=== PATIENT | female | born 1995 | race Caucasian/White ===

== ENCOUNTER → 2022-09-17 | Outpatient (CLI) | payer OTHER ==
[2022-09-17 09:32] LABS: BASO # 0.1 10^3/uL (0.0-0.2); BASO % 0.5 % (0.0-1.0); EOS # 0.2 10^3/uL (0.0-0.5); EOS % 1.9 % (0.0-3.0); HEMATOCRIT 42.2 % (36.0-47.0); HEMOGLOBIN 13.9 g/dl (12.0-15.5); LYMPH # 2.6 10^3/uL (1.5-5.0); LYMPH % 27.7 % (24.0-44.0); MEAN CORPUSCULAR HEMOGLOBIN 29.9 pg (27.0-33.0); MEAN CORPUSCULAR HGB CONC 32.9 g/dl (32.0-36.5); MEAN CORPUSCULAR VOLUME 90.8 fl (80.0-96.0); MONO # 0.6 10^3/uL (0.0-0.8); MONO % 6.6 % (2.0-8.0); NEUTROPHILS # 5.8 10^3/uL (1.5-8.5); NEUTROPHILS % 62.2 % (36.0-66.0); PLATELET COUNT, AUTOMATED 319 10^3/uL (150-450); RED BLOOD COUNT 4.65 10^6/uL (4.00-5.40); WHITE BLOOD COUNT 9.4 10^3/uL (4.0-10.0)
[2022-09-17 09:57] LABS: CREATININE, URINE 147.3 MG/DL; MAU/CREAT RATIO 2.7 MCG/MG (0.0-30.0)
[2022-09-17 09:58] LABS: ALBUMIN 3.5 G/DL (3.2-5.2); ALKALINE PHOSPHATASE 80 U/L (46-116); ALT/SGPT 29 U/L (7.0-40); AST/SGOT 22 U/L (<34); BILIRUBIN,TOTAL 0.3 MG/DL (0.3-1.2); BLOOD UREA NITROGEN 8 MG/DL (9-23); CALCIUM LEVEL 9.1 MG/DL (8.5-10.1); CARBON DIOXIDE LEVEL 27 MMOL/L (20-31); CHLORIDE LEVEL 104 MMOL/L (98-107); CREATININE FOR GFR 0.82 MG/DL (0.55-1.30); GLOMERULAR FILTRATION RATE > 60.0 (>60); GLUCOSE, FASTING 96 MG/DL (60-100); POTASSIUM SERUM 4.2 MMOL/L (3.5-5.1); SODIUM LEVEL 139 MMOL/L (136-145); TOTAL PROTEIN 6.5 G/DL (5.7-8.2)
[2022-09-17 10:00] LABS: FREE T4 0.94 NG/DL (0.89-1.76); HCG, SERUM QUALITATIVE NEGATIVE (NEGATIVE)
[2022-09-17 10:01] LABS: THYROID STIMULATING HORMONE 1.941 uIU/ML (0.55-4.78)
== END ==
LOC: M LAB 09:06
PROVIDERS: ATTEND Nurse Practitioner Family
DX: R11.10 Vomiting, unspecified (principal); R10.84 Generalized abdominal pain

== ENCOUNTER 2022-10-30 07:40 | Emergency (ER) | payer OTHER ==
[~2022-10-30] VITALS: Ht 162.6 cm; Wt 81.1 kg
[2022-10-30] MEDS ORDERED: DULO1CAP5 (07:50)
[2022-10-30] MEDS ORDERED: OLAN1TAB16 (07:50)
[2022-10-30] MEDS ORDERED: PROP20TA72 (07:50)
[2022-10-30] MEDS ORDERED: ALPR0.25 (07:50)
[2022-10-30] MEDS ORDERED: FAMO1TAB11 (07:50)
[2022-10-30] MEDS ORDERED: ONDANSETRON 4MG 2ML VIAL IV ONE (08:10)
[2022-10-30] MEDS ORDERED: PANTOPRAZOLE 40MG VIAL IV ONE (08:10)
[2022-10-30] MEDS ORDERED: NS 1,000 ML IV ONE (08:10)
[2022-10-30 08:54] LABS: BASO # 0.1 10^3/uL (0.0-0.2); BASO % 0.6 % (0.0-1.0); EOS % 0.2 % (0.0-3.0); HEMATOCRIT 45.6 % (36.0-47.0); HEMOGLOBIN 15.3 g/dl (12.0-15.5); LYMPH # 1.8 10^3/uL (1.5-5.0); LYMPH % 20.3 % (24.0-44.0); MEAN CORPUSCULAR HGB CONC 33.6 g/dl (32.0-36.5); MEAN CORPUSCULAR VOLUME 89.4 fl (80.0-96.0); MONO # 0.6 10^3/uL (0.0-0.8); MONO % 6.7 % (2.0-8.0); NEUTROPHILS # 6.3 10^3/uL (1.5-8.5); NEUTROPHILS % 71.5 % (36.0-66.0); PLATELET COUNT, AUTOMATED 430 10^3/uL (150-450); WHITE BLOOD COUNT 8.8 10^3/uL (4.0-10.0)
[2022-10-30 09:19] LABS: ALBUMIN 4.1 G/DL (3.2-5.2); ALKALINE PHOSPHATASE 85 U/L (46-116); ALT/SGPT 66 U/L (7.0-40); AST/SGOT 61 U/L (<34); BILIRUBIN,DIRECT 0.4 MG/DL (<0.4); BILIRUBIN,TOTAL 1.3 MG/DL (0.3-1.2); BLOOD UREA NITROGEN 9 MG/DL (9-23); CALCIUM LEVEL 9.3 MG/DL (8.5-10.1); CARBON DIOXIDE LEVEL 22 MMOL/L (20-31); CHLORIDE LEVEL 99 MMOL/L (98-107); CREATININE FOR GFR 0.75 MG/DL (0.55-1.30); GLOMERULAR FILTRATION RATE > 60.0 (>60); GLUCOSE, FASTING 106 MG/DL (60-100); POTASSIUM SERUM 3.5 MMOL/L (3.5-5.1); SODIUM LEVEL 135 MMOL/L (136-145); TOTAL PROTEIN 7.8 G/DL (5.7-8.2)
[2022-10-30] MEDS ORDERED: UNIS25TA3 PO (11:37)
[2022-10-30] MEDS ORDERED: ONDA4TAB6 PO (11:37)
[2022-10-30] MEDS ORDERED: PYRI25TA2 PO (11:37)
[2022-10-30 11:42] VITALS: BP 145/74
== END 2022-10-30 11:50 | disposition home or self-care (01) ==
LOC: M ED 07:40
DX: Z33.1 Pregnant state, incidental (principal); Z3A.00 Weeks of gestation of pregnancy not specified; K76.0 Fatty (change of) liver, not elsewhere classified; F12.10 Cannabis abuse, uncomplicated
CPT/HCPCS: 76705; 80048; 80076; 84702; 85025; 96374; 96375; 99284; C9113; J2405

== ENCOUNTER 2022-11-22 18:02 | Emergency (ER) | payer OTHER ==
[~2022-11-22] VITALS: Ht 160 cm; Wt 81.3 kg
[~2022-11-22 18:02] MED LIST: ALPR0.25; DULO1CAP5; FAMO1TAB11; OLAN1TAB16; ONDA4TAB6 PO; PROP20TA72; PYRI25TA2 PO; UNIS25TA3 PO
[2022-11-22] MEDS ORDERED: ACETAMINOPHEN 1000MG 100ML IV BAG IV ONE (19:20)
[2022-11-22] MEDS ORDERED: METOCLOPRAMIDE INJ 10MG/2ML VIAL IV ONE (19:20)
[2022-11-22 21:04] VITALS: BP 120/80
[2022-11-22] MEDS ORDERED: ONDA4TAB6 PO (21:04)
== END 2022-11-22 21:09 | disposition home or self-care (01) ==
LOC: M ED 18:02
DX: O99.351 Diseases of the nervous system complicating pregnancy, first trimester (principal); G43.909 Migraine, unspecified, not intractable, without status migrainosus; Z3A.09 9 weeks gestation of pregnancy
CPT/HCPCS: 96374; 96375; 99284; J0131; J2765

== ENCOUNTER 2022-11-29 15:37 | Emergency (ER) | payer OTHER ==
[~2022-11-29] VITALS: Ht 160 cm; Wt 79.0 kg
[2022-11-29 15:39] VITALS: BP 134/85
[2022-11-29] MEDS ORDERED: PREN1TAB11 PO (15:58)
[2022-11-29] MEDS ORDERED: MAGN400T33 (15:58)
[2022-11-29] MEDS ORDERED: NS 1,000 ML IV ONE (18:30)
[2022-11-29] MEDS ORDERED: PROMETHAZINE 25MG/ML 1ML VIAL IV ONE (18:30)
[2022-11-29 19:04] LABS: BASO # 0.1 10^3/uL (0.0-0.2); BASO % 0.3 % (0.0-1.0); HEMATOCRIT 44.7 % (36.0-47.0); LYMPH # 2.7 10^3/uL (1.5-5.0); LYMPH % 16.5 % (24.0-44.0); MEAN CORPUSCULAR HEMOGLOBIN 30.4 pg (27.0-33.0); MEAN CORPUSCULAR HGB CONC 35.8 g/dl (32.0-36.5); MONO # 1.2 10^3/uL (0.0-0.8); MONO % 7.5 % (2.0-8.0); NEUTROPHILS # 12.4 10^3/uL (1.5-8.5); NEUTROPHILS % 75.3 % (36.0-66.0); PLATELET COUNT, AUTOMATED 488 10^3/uL (150-450); RED BLOOD COUNT 5.26 10^6/uL (4.00-5.40); WHITE BLOOD COUNT 16.4 10^3/uL (4.0-10.0)
[2022-11-29 19:22] LABS: ALBUMIN 3.8 G/DL (3.2-5.2); ALKALINE PHOSPHATASE 83 U/L (46-116); ALT/SGPT 224 U/L (7.0-40); AST/SGOT 124 U/L (<34); BILIRUBIN,DIRECT 0.7 MG/DL (<0.4); BILIRUBIN,TOTAL 1.3 MG/DL (0.3-1.2); BLOOD UREA NITROGEN 11 MG/DL (9-23); CALCIUM LEVEL 9.7 MG/DL (8.5-10.1); CARBON DIOXIDE LEVEL 30 MMOL/L (20-31); CHLORIDE LEVEL 89 MMOL/L (98-107); CREATININE FOR GFR 0.62 MG/DL (0.55-1.30); GLOMERULAR FILTRATION RATE > 60.0 (>60); GLUCOSE, FASTING 85 MG/DL (60-100); SODIUM LEVEL 131 MMOL/L (136-145); TOTAL PROTEIN 7.3 G/DL (5.7-8.2)
[2022-11-29] MEDS ORDERED: PROM25SU3 PR (21:20)
[2022-11-29] MEDS ORDERED: CEPH500C PO (21:20)
[2022-11-29] MEDS ORDERED: CEPHALEXIN 500 MG CAP PO ONE (21:30)
== END 2022-11-29 21:37 | disposition home or self-care (01) ==
LOC: M ED 15:37
DX: O23.31 Infections of other parts of urinary tract in pregnancy, first trimester (principal); O21.9 Vomiting of pregnancy, unspecified; Z3A.10 10 weeks gestation of pregnancy
CPT/HCPCS: 76801; 80048; 80076; 81001; 85025; 87086; 93976; 96374; 99283; J2550

== ENCOUNTER → 2022-12-06 | Outpatient (CLI) | payer OTHER ==
[~2022-12-06] MED LIST changes: +CEPH500C PO; +MAGN400T33; +PREN1TAB11 PO; +PROM25SU3 PR
[2022-12-06 12:16] LABS: ALBUMIN 3.2 G/DL (3.2-5.2); BILIRUBIN,DIRECT 0.2 MG/DL (<0.4); BILIRUBIN,TOTAL 0.4 MG/DL (0.3-1.2); TOTAL PROTEIN 6.2 G/DL (5.7-8.2)
== END ==
LOC: M LAB 09:40
PROVIDERS: ATTEND Nurse Practitioner Family
DX: R94.8 Abnormal results of function studies of other organs and systems (principal)

== ENCOUNTER → 2023-08-17 | Outpatient (CLI) | payer OTHER | LOC: M PLAIMG 06:40 | PROVIDERS: ATTEND Nurse Practitioner | DX: G43.909 Migraine, unspecified, not intractable, without status migrainosus (principal) ==

== ENCOUNTER 2024-01-19 09:06 | Day surgery (SDC) | payer OTHER ==
[~2024-01-19] VITALS: Ht 160 cm; Wt 83.2 kg
[~2024-01-19 09:06] MED LIST changes: +CLON0.5T2 PO; +KLON1TAB13 PO; +NS 1,000 ML IV ONE; +PANT40TA29 PO; +SERT50TA29 PO; +VENL37TA PO; +VRAY3CAP PO; +ZOLO100T PO
[2024-01-19] MEDS: NS 1,000 ML IV ONE (10:12)
[2024-01-19] MEDS ORDERED: fentaNYL 100 MCG/2 ML INJECTION As Ordered ONE (11:17)
[2024-01-19] MEDS ORDERED: propofoL 500 MG/50 ML VIAL As Ordered ONE (11:42)
[2024-01-19] MEDS ORDERED: LIDOCAINE 2% 100MG/5ML SDV (FOR ANES.) As Ordered ONE (11:42)
[2024-01-19 12:00] VITALS: BP 135/87; TEMP 96.6; O2SAT 100
== END 2024-01-19 12:04 | disposition home or self-care (01) ==
LOC: M OPP 09:06
PROVIDERS: ATTEND Internal Medicine Gastroenterology
DX: R10.13 Epigastric pain (principal); K22.89 Other specified disease of esophagus; R11.0 Nausea; R12 Heartburn; Z90.49 Acquired absence of other specified parts of digestive tract; Z79.899 Other long term (current) drug therapy
CPT/HCPCS: 43239; 88305; J3010

== ENCOUNTER 2025-05-08 08:33 | Emergency (ER) | payer OTHER ==
[~2025-05-08] VITALS: Ht 162.6 cm; Wt 76.6 kg
[~2025-05-08 08:33] MED LIST changes: -NS 1,000 ML IV ONE; +ONDA-282 PO; -ONDA4TAB6 PO
[2025-05-08] MEDS ORDERED: LURA40TA2 (08:45)
[2025-05-08] MEDS: NS (Normal Saline) 0.9% 1,000 ML IV ONE (12:05)
[2025-05-08] MEDS: ONDANSETRON 4MG 2ML VIAL IV ONE (12:05)
[2025-05-08 12:09] LABS: BASO # 0.1 10^3/uL (0.0-0.2); BASO % 0.6 % (0.0-1.0); EOS # 0.0 10^3/uL (0.0-0.5); EOS % 0.2 % (0.0-3.0); LYMPH # 2.1 10^3/uL (1.5-5.0); LYMPH % 20.2 % (24.0-44.0); MONO # 0.7 10^3/uL (0.0-0.8); MONO % 6.5 % (2.0-8.0); NEUTROPHILS # 7.4 10^3/uL (1.5-8.5); NEUTROPHILS % 72.0 % (36.0-66.0); PLATELET COUNT, AUTOMATED 385 10^3/uL (150-450)
[2025-05-08 12:30] LABS: HCG, SERUM QUALITATIVE NEGATIVE (NEGATIVE)
[2025-05-08 12:32] LABS: ALT/SGPT 71 U/L (7.0-40); AST/SGOT 57 U/L (<34); CALCIUM LEVEL 9.9 MG/DL (8.5-10.1); CARBON DIOXIDE LEVEL 25 MMOL/L (20-31); CHLORIDE LEVEL 105 MMOL/L (98-107); CREATININE FOR GFR 0.79 MG/DL (0.55-1.30); GLOMERULAR FILTRATION RATE > 90.0 (>60); POTASSIUM SERUM 4.2 MMOL/L (3.5-5.1); SODIUM LEVEL 144 MMOL/L (136-145)
[2025-05-08 12:53] LABS: KETONE, URINE AUTO RFX 1+ mg/dL (NEGATIVE); LEUKOCYTE ESTERASE UR AUTO RFX NEGATIVE (NEGATIVE); MUCUS, URINE RFX SMALL (NEGATIVE); NITRITE, URINE AUTO RFX NEGATIVE (NEGATIVE); RBC, URINE AUTO RFX 0 /HPF (0-3); SQUAM EPITHELIAL CELL UR AURFX 2 /HPF (0-6); WBC, URINE AUTO RFX 0 /HPF (0-3)
[2025-05-08] MEDS: clonazePAM 0.5 MG TAB PO ONE (15:38)
[2025-05-08 18:15] VITALS: BP 115/71; O2SAT 97
[2025-05-08] MEDS ORDERED: PROM12.56 PO (18:22)
[2025-05-08 18:26] VITALS: TEMP 98.1
== END 2025-05-08 18:34 | disposition home or self-care (01) ==
LOC: M ED 08:33
DX: R11.10 Vomiting, unspecified (principal); F12.10 Cannabis abuse, uncomplicated; Z79.899 Other long term (current) drug therapy
CPT/HCPCS: 80048; 80076; 81001; 83690; 84703; 85025; 96374; 96375; 99284; J2405; J2550; J2765